=== PATIENT | male | born 2000 | race Caucasian/White ===

== ENCOUNTER 2018-05-19 19:18 | Emergency (ER) | payer OTHER ==
[2018-05-19 23:58] VITALS: BP 133/83
--- NOTE | 2018-05-20 00:03 | ED ---
GI/ HPI - HPI Summary HPI Summary: 18 year old male presents with left-sided testicular pain today. He states it started suddenly. He states is worse when he coughs or when he stands up. He denies any recent weight lifting. Never had this before. No abnormal penile discharge. No urinary symptoms. No nausea or vomiting. no fevers. No hematuria or flank pain. - History of Current Complaint Chief Complaint: EDUrogenitalProblems Time Seen by Provider: 05/19/18 23:13 Stated Complaint: POSS TESTICLE TORSION NEED ULTRASOUND PER PT Pain Intensity: 5 - Allergy/Home Medications Allergies/Adverse Reactions: Allergies Allergy/AdvReac Type Severity Reaction Status Date / Time No Known Allergies Allergy Verified 05/19/18 19:31 Home Medications: Home Medications Gabapentin 300 mg PO BEDTIME 05/19/18 [History Confirmed 05/19/18] PMH/Surg Hx/FS Hx/Imm Hx Endocrine/Hematology History: Denies: Hx Anticoagulant Therapy Respiratory History: Denies: Hx Asthma Infectious Disease History: No Infectious Disease History: Denies: Traveled Outside the [place] in Last 30 Days - Family History Known Family History: Positive: Non-Contributory - Social History Alcohol Use: None Substance Use Type: Reports: None Smoking Status (MU): Never Smoked Tobacco Review of Systems Negative: Fever Negative: Chest Pain Negative: Shortness Of Breath Positive: other - left side scrotal pain All Other Systems Reviewed And Are Negative: Yes Physical Exam Triage Information Reviewed: Yes Vital Signs On Initial Exam: Initial Vitals Temp Pulse Resp BP Pulse Ox 99.7 F 78 16 135/90 97 05/19/18 19:29 05/19/18 19:29 05/19/18 19:29 05/19/18 19:29 05/19/18 19:29 Vital Signs Reviewed: Yes Appearance: Positive: Well-Appearing Skin: Positive: Warm, Dry Head/Face: Positive: Normal Head/Face Inspection Eyes: Positive: Normal, Conjunctiva Clear ENT: Positive: Pharynx normal Respiratory/Lung Sounds: Positive: Clear to Auscultation, Breath Sounds Present Cardiovascular: Positive: Normal, RRR Abdomen Description: Positive: Nontender, Soft Bowel Sounds: Positive: Present Male Genital Exam: Positive: Normal Genitalia, Normal Prostate, No Hernia, Other - tenderness inguinal left more pain when bares down but no hernia felt. Negative: Scrotum Tenderness (R), Scrotum Tenderness (L), Testicular Tenderness (R), Testicular Tenderness (L) Musculoskeletal: Positive: Normal Neurological: Positive: Normal Psychiatric: Positive: Normal Diagnostics - Vital Signs Vital Signs Temp Pulse Resp BP Pulse Ox 05/19/18 23:56 67 133/83 100 05/19/18 23:55 65 99 05/19/18 19:29 99.7 F 78 16 135/90 97 - Laboratory Lab Statement: Any lab studies that have been ordered have been reviewed, and results considered in the medical decision making process. - Ultrasound No standard instances Ultrasound Interpretation Completed By: Radiologist Summary of Ultrasound Findings: IMPRESSION: Bilateral small epididymal head cysts. No additional findings to correlate with. patient's symptomatology. GIGU Course/Dx - Course Course Of Treatment: 18 year old male presents with left-sided testicular pain today. He states it started suddenly. He states is worse when he coughs or when he stands up. He denies any recent weight lifting. Never had this before. No abnormal penile discharge. No urinary symptoms. No nausea or vomiting. no fevers. No hematuria or flank pain. On exam tenderness over left inguinal area. No hernia felt. Pain is worse when he bears down. Ultrasound normal. urine normal. Explained symptoms could be due to hernia although not feeling hernia at this time. Told to follow-up with primary. Told that if develop mass should follow-up with surgery. Patient understands and agrees plan. - Diagnoses Differential Diagnoses - Male: Testicular Torsion, Urinary Tract Infection, Other - hernia Provider Diagnoses: Testicular/scrotal pain Discharge - Sign-Out/Discharge Documenting (check all that apply): Patient Departure Patient Received Moderate/Deep Sedation with Procedure: No - Discharge Plan Condition: Good Disposition: HOME Patient Education Materials: Scrotal Pain (ED) Referrals: Fannie CAMERON,Jannette Adkins [Primary Care Provider] - Ricco Medley MD [Medical Doctor] - Additional Instructions: symptoms could be due to inguinal hernia although one is not felt on exam at this time follow up with primary referral to surgery given do not lift heavy objects Take tyenlol or ibuprofen as needed for pain Return to ED if develop any new or worsening symptoms - Billing Disposition and Condition Condition: GOOD Disposition: Home
[2018-05-20 00:16] LABS: Urine Appearance Clear; Urine Bilirubin Negative (Negative); Urine Blood Negative (Negative); Urine Color Yellow; Urine Glucose Negative (Negative); Urine Ketones Negative (Negative); Urine Nitrite Negative (Negative); Urine Protein Negative (Negative); Urine Specific Gravity 1.015 (1.010-1.030); Urine Urobilinogen Negative (Negative)
== END 2018-05-20 00:19 | disposition home or self-care (01) ==
LOC: ED 19:18
DX: N50.812 Left testicular pain (principal); N50.82 Scrotal pain
CPT/HCPCS: 76870; 81003; 99282